=== PATIENT | female | born 1955 | race African-American/Black ===

== ENCOUNTER 2019-10-21 02:26 | Emergency (ER) | payer OTHER ==
[~2019-10-21] VITALS: Ht 154.9 cm; Wt 105.0 kg
[~2019-10-21 02:26] MED LIST: ABIL10 PO; ALBUTEROL; AMLO10TA4 PO; ARIP2TAB3; HYDR-523 PO; IBUP-1636 PO; IBUP-2077 PO; MAX25 PO; NAPR-1176 PO; NAPROSYN; NORCO; VALS40TA4
[2019-10-21] MEDS ORDERED: SODIUM CHLORIDE 0.9% 1,000 ML IV ONE (04:02)
[2019-10-21] MEDS ORDERED: DIPHENHYDRAMINE 50MG/ML VIAL IV ONE (04:15)
[2019-10-21] MEDS ORDERED: ASPIRIN 81MG TABLET PO ONE (04:15)
[2019-10-21] MEDS ORDERED: METOCLOPRAMIDE HCL 10MG/2ML VIAL IV ONE (04:15)
[2019-10-21 04:55] LABS: CHLORIDE 105 mEq/L (98-107)
[2019-10-21 04:56] LABS: BASOPHILS % 0.4 % (0.0-2.0); EOSINOPHILS % 2.4 % (0.0-5.0); HEMATOCRIT. 32.1 % (36.0-48.0); HEMOGLOBIN. 10.7 g/dL (12.0-16.0); LYMPHOCYTES % 20.9 % (20.0-50.0); MEAN CORPUSCULAR HEMOGLOBIN 26.2 pg (28.0-32.0); MEAN CORPUSCULAR VOLUME 78.5 fL (81.0-99.0); MEAN PLATELET VOLUME 7.8 fl (7.4-10.4); MONOCYTES % 7.7 % (2.0-8.0); NEUTROPHILS % 68.6 % (40.0-76.0); PLATELET 373 x1000/uL (130-400); RED BLOOD CELL COUNT 4.08 mill/uL (4.2-5.4); RED CELL DISTRIBUTION WIDTH 14.4 % (11.6-14.6)
[2019-10-21] MEDS ORDERED: KETOROLAC 30MG/ML VIAL IV ONE (06:00)
[2019-10-21 07:05] VITALS: BP 169/86
== END 2019-10-21 08:14 | disposition home or self-care (01) ==
LOC: ER 02:26
DX: R51 Headache (principal); R07.9 Chest pain, unspecified; R11.0 Nausea; I51.7 Cardiomegaly; J45.909 Unspecified asthma, uncomplicated; I10 Essential (primary) hypertension; E78.00 Pure hypercholesterolemia, unspecified; G43.909 Migraine, unspecified, not intractable, without status migrainosus
CPT/HCPCS: 36415; 70450; 71045; 80053; 83880; 84484; 85025; 93005; 96374; 96375; 99284; J1200; J1885; J2765; J7030; Z7610; A4315

== ENCOUNTER 2019-11-14 04:28 | Emergency (ER) | payer OTHER ==
[~2019-11-14] VITALS: Ht 162.6 cm; Wt 102.0 kg
[2019-11-14] MEDS ORDERED: HYDROCODONE/ACETAMINOPHEN 5/325MG TABLET PO STA (08:10)
[2019-11-14] MEDS ORDERED: FAMOTIDINE 20MG/2ML VIAL IV ONE (08:15)
[2019-11-14] MEDS ORDERED: PIPERACILLIN/TAZ 3.375G PREMIX 50 ML IV ONE (08:15)
[2019-11-14] MEDS ORDERED: VANCOMYCIN 1 G PREMIX 200 ML IV ONE (08:15)
[2019-11-14 09:47] LABS: CLARITY URINE CLOUDY (CLEAR); COLOR URINE DARK YELLOW (YELLOW); KETONES URINE NEGATIVE (NEGATIVE); LEUKOCYTE ESTERASE URINE 2+ (NEGATIVE); NITRITE URINE NEGATIVE (NEGATIVE); OCCULT BLOOD URINE NEGATIVE (NEGATIVE); PROTEIN URINE 1+ (NEGATIVE); SPECIFIC GRAVITY URINE 1.026 (1.005-1.030)
[2019-11-14 10:26] LABS: HEMATOCRIT. 29.9 % (36.0-48.0); MEAN CORPUSCULAR HEMOGLOBIN 25.5 pg (28.0-32.0); MEAN CORPUSCULAR VOLUME 76.2 fL (81.0-99.0); MEAN PLATELET VOLUME 7.4 fl (7.4-10.4); PLATELET 366 x1000/uL (130-400); RED BLOOD CELL COUNT 3.92 mill/uL (4.2-5.4); RED CELL DISTRIBUTION WIDTH 16.1 % (11.6-14.6)
[2019-11-14 10:33] LABS: PROTHROMBIN TIME 10.1 sec (9.6-11.0)
[2019-11-14 10:36] LABS: CHLORIDE 105 mEq/L (98-107)
[2019-11-14 11:35] LABS: PLATELET ESTIMATE NORMAL
[2019-11-14 12:45] VITALS: BP 114/68
== END 2019-11-14 13:48 | disposition short-term general hospital (02) ==
LOC: ER 04:28 → EDBEDREQ 08:16 → EDBEDREQSVC 10:41 → EDBEDREQ 10:41 → CANBEDREQ 11:24 → ER 13:48
DX: L03.116 Cellulitis of left lower limb (principal); N39.0 Urinary tract infection, site not specified; D50.9 Iron deficiency anemia, unspecified; E86.0 Dehydration; J45.909 Unspecified asthma, uncomplicated; I25.10 Atherosclerotic heart disease of native coronary artery without angina pectoris; E78.00 Pure hypercholesterolemia, unspecified; F32.9 Major depressive disorder, single episode, unspecified; I10 Essential (primary) hypertension
CPT/HCPCS: 36415; 71045; 73590; 80053; 81003; 83605; 84145; 84484; 85025; 85610; 87040; 87086; 93005; 93971; 96365; 96366; 96368; 96375; 99284; J2543; J3370; J3490; Z7610